=== PATIENT | female | born 1975 | race Caucasian/White ===

== ENCOUNTER 2022-02-15 21:42 | Emergency (ER) | payer OTHER ==
[~2022-02-15] VITALS: Ht 165.1 cm; Wt 79.4 kg
--- NOTE | 2022-02-15 23:32 | NUR ---
BIBSELF C/O RUQ PAIN RAD TO BACK FOR THE PAST FEW MONTHS FELT WORSE THIS WEEK. PATIENT ALERT AND ORIENTED X3. AMBULATORY WITH NON LABORED BREATHING IN BED 10 AWAITING MD HUBBARD.
[2022-02-15] MEDS ORDERED: KETOROLAC TROMETHAMINE INJ 30 MG/ML VIAL ONE (23:43)
--- NOTE | 2022-02-15 23:45 | NUR ---
BLOOD COLLECTED AND SENT TO LAB
--- NOTE | 2022-02-15 23:46 | NUR ---
ASHU LIMA AT BEDSIDE FOR EKG.
--- NOTE | 2022-02-15 23:46 | NUR ---
URINE COLLECTED AND SENT TO LAB
[2022-02-15 23:47] LABS: BILIRUBIN,URINE NEGATIVE (NEGATIVE); COLOR,URINE YELLOW (YELLOW); LEUKOCYTE ESTERASE ,URINE TRACE (NEGATIVE); NITRITE, URINE NEGATIVE (NEGATIVE); PROTEIN,URINE NEGATIVE (NEGATIVE); UGLUCOSE NEGATIVE (NEGATIVE); UROBILINOGEN,URINE 0.2 EU/dL (0.2)
[2022-02-15 23:59] LABS: BACTERIA,URINE Rare /HPF (None Seen); RBC,URINE 0-2 /HPF (0-2); SQUAMOUS EPITHELIAL CELL,UR Few /HPF (None Seen); WBC,URINE 0-2 /HPF (0-3)
[2022-02-16] MEDS ORDERED: KETOROLAC TROMETHAMINE INJ 30 MG/ML VIAL IV ONE
[2022-02-16] MEDS ORDERED: IV NS 0.9% 1,000 ML BAG IV ONE
[2022-02-16 00:09] LABS: BASOPHILS # (AUTO) 0.1 K/uL (0.0-0.2); BASOPHILS % (AUTO) 0.7 % (0.0-2.0); EOSINOPHILS % (AUTO) 0.8 % (0.0-6.0); HEMATOCRIT 38 % (33-45); HEMOGLOBIN 12.8 g/dL (11.5-14.8); LYMPHOCYTES # (AUTO) 2.4 K/uL (0.8-4.8); MEAN CORPUSCULAR HGB CONC 34 g/dl (31.0-36.0); MEAN CORPUSCULAR VOLUME 95 fL (82-100); MONOCYTES # (AUTO) 0.5 K/uL (0.1-1.30); MONOCYTES % (AUTO) 6.1 % (2.0-12.0); NEUTROPHILS # (AUTO) 5.4 K/uL (1.8-8.9); NEUTROPHILS % (AUTO) 64.4 % (43.0-81.0); PLATELET COUNT (AUTO) 331 K/uL (150-450); RED BLOOD CELL COUNT(AUTO) 3.97 MIL/uL (4.0-5.2); WHITE BLOOD COUNT (AUTO) 8.4 K/uL (4.3-11.0)
[2022-02-16] MEDS ORDERED: diphenhydrAMINE HCL 50 MG/ML VIAL ONE (00:13)
[2022-02-16 00:19] LABS: CARBON DIOXIDE 25 mmol/L (21-32); CHLORIDE 107 mmol/L (98-107); CREATININE 0.8 mg/dL (0.6-1.3); GLUCOSE 127 mg/dL (74-106); POTASSIUM 3.7 mmol/L (3.5-5.1); SODIUM SERUM 141 mmol/L (136-145); UREA NITROGEN, BLOOD 9 mg/dL (7-18)
[2022-02-16 00:25] LABS: ALANINE AMINOTRANSFERASE 29 U/L (12-78); ALKALINE PHOSPHATASE 52 U/L (46-116); ASPARTATE AMINOTRANSFERASE 16 U/L (15-37); BILIRUBIN,DIRECT 0.1 mg/dL (0.0-0.2); BILIRUBIN,TOTAL 0.6 mg/dL (0.2-1.0); LIPASE 79 U/L (73-393); TOTAL PROTEIN, SERUM 8.1 g/dL (6.4-8.2)
[2022-02-16] MEDS ORDERED: diphenhydrAMINE HCL 50 MG/ML VIAL IV ONE (00:30)
--- NOTE | 2022-02-16 00:45 | NUR ---
angiography technologist at pt's bedside
--- NOTE | 2022-02-16 00:47 | NUR ---
IV LINE REMOVED PER PATIENT REQUEST
--- NOTE | 2022-02-16 03:11 | NUR ---
Patient discharged to home in stable condition. Written and verbal after care instructions given. Patient verbalizes understanding of instruction.
[2022-02-16 04:30] VITALS: BP 137/80
== END 2022-02-16 03:15 | disposition home or self-care (01) ==
LOC: ER 21:48
DX: R10.11 Right upper quadrant pain (principal); Z88.8 Allergy status to other drugs, medicaments and biological substances
CPT/HCPCS: 36415; 71045; 76705; 80048; 80076; 81001; 83690; 84484; 85025; 85730; 93005; 96361; 96374; 96375; 99285; J1200; J1885; J7030